=== PATIENT | female | born 1975 | race Caucasian/White ===

== ENCOUNTER 2019-10-21 12:42 | Emergency (ER) | payer BC ==
--- NOTE | 2019-10-21 13:29 | EDM.PDOC ---
ED HPI GENERAL MEDICAL PROBLEM - General Chief Complaint: ENT Problem Stated Complaint: SINUS INFECTION Time Seen by Provider: 10/21/19 13:29 Source of Information: Reports: Patient History Limitations: Reports: No Limitations - History of Present Illness INITIAL COMMENTS - FREE TEXT/NARRATIVE: 44 year old female present to [place] [facility] for 1 month recurrent sinus pressure and pain. Patient getting sinusitis and bronchitis at least once every spring due to seasonal allergies. Patient was treated 1 month ago with Kenalog injection which help her symptoms temporarily. Patient symptoms return abut 5-7 days ago with increased sinus pressure, pain, post nasal drainage, ear pressure and concern regarding recurrent sinus bacterial infection. Patient is using Lydia D for symptoms for the last few day which may symptoms tolerable. Patient has not been good about using allergy medications. Patient has been worked up by ENT, not able tolerated nasal sinus rinses recommended. Patient has not been taking Flonase. Patient has a history of recurrent ear infection with TM reconstruction right TM per history. sinus Pain Score (Numeric/FACES): 3 - Related Data Allergies Allergy/AdvReac Type Severity Reaction Status Date / Time Sulfa (Sulfonamide Allergy Other Verified 10/21/19 13:26 Antibiotics) Home Meds: Home Meds Cefuroxime Axetil [Ceftin] 500 mg PO BID 10 Days #20 tablet 10/21/19 [Rx] predniSONE [Prednisone] 20 mg PO DAILY 5 Days #30 tablet 10/21/19 [Rx] ED ROS ENT - Review of Systems Review Of Systems: Comprehensive ROS is negative, except as noted in HPI. ED EXAM, ENT - Physical Exam Exam: See Below Exam Limited By: No Limitations General Appearance: Alert, WD/WN, Mild Distress (hoarse voice and sinus pressure) Eye Exam: Bilateral Eye: EOMI, Normal Inspection Ears: Normal External Exam, Normal Canal, Hearing Grossly Normal, Cerumen Impaction. No: Normal TMs (scarring noted with air fluid levels, no obviosu signs of purulence but difficutl to assess due to scarring) Nose: Normal Mucousa Mouth/Throat: Normal Inspection, Normal Oropharynx (slight erythema with PND liekly due to cobblestoning), Hoarse Voice Neck: Normal Inspection, Non-Tender, Full Range of Motion Respiratory/Chest: No Respiratory Distress, Lungs Clear, Normal Breath Sounds Cardiovascular: Normal Peripheral Pulses, Regular Rate, Rhythm, No Murmur, Other (elevated blood pressure noted, discussed likely due to decongestant) Neurological: Alert, Oriented, CN II-XII Intact, Normal Cognition, Normal Gait, Normal Reflexes, No Motor/Sensory Deficits Psychiatric: Normal Affect, Normal Mood Course - Vital Signs Last Recorded V/S: Last Vital Signs Temp 36.4 C 10/21/19 13:25 Pulse 83 10/21/19 13:25 Resp 16 10/21/19 13:25 BP 143/83 H 10/21/19 13:25 Pulse Ox 98 10/21/19 13:25 Departure - Departure Time of Disposition: 14:16 Disposition: Home, Self-Care 01 Clinical Impression: Eustachian tube dysfunction, Sinusitis, acute, Elevated blood pressure reading - Discharge Information Prescriptions: Cefuroxime Axetil [Ceftin] 500 mg PO BID 10 Days #20 tablet predniSONE [Prednisone] 20 mg PO DAILY 5 Days #30 tablet Instructions: Eustachian Tube Dysfunction, How to Perform a Sinus Rinse, [id number], Sinusitis, Adult Referrals: PCP,None [Primary Care Provider] - Forms: ED Department Discharge Additional Instructions: 1. WATCHFUL WAITING x 72 hrs before initiating Oral ANTIBIOTIC Ceftin 500mg BID x 10 days. 2. TAKE ANTIBIOTIC WITH FOOD MAY CAUSE UPSET STOMACH AND LOOSE STOOLS. 3. Prednisone 20mg 1-2 times day for sinus pressure and pain max 5 days, with food. 4. SALINE NASAL IRRIGATIONS IF ABLE TO TOLERATE BEFORE NASAL SPRAY. 5. FLONASE NASAL SPRAY 2 SPRAY EACH NOSTRIL 1-2 times daily during allergy season. 6. WARM COMPRESS TO FACIAL AREA FOR PAIN AND PRESSURE 7. IBUPROFEN 800MG EVERY 6-8 HOURS WITH FOOD FOR SINUS PAIN, PRESSURE AND FEVER. 8. TYLENOL 500-1000MG EVERY 6-8 HOURS FOR FEVER AND PAIN. 9. YOUR MAY USE AFRIN NASAL SPRAY but on 3 days in a row, then STOP x 3-4 days, then you may use again for 3 days. 10. SEE PCP IN 7-10 DAYS IF NOT IMPROVING OR SYMPTOMS CONTINUE AFTER ANTIBIOTIC TREATMENT. YOUR BLOOD PRESSURE TODAY WAS ELEVATED WHICH MAY BE DUE TO TAKING DECONGESTANT. PLEASE RECHECK BLOOD PRESSURE 1-2 TIMES DAILY FOR SHREYA NEXT 2 WEEKS AND TAKE READING TO PCP for review. Discharge Instructions Sinus Infection You have acute sinusitis, or an infection of the sinuses. The sinuses are the hollow areas within the facial bones that are connected to the nasal opening. The most common cause of acute sinusitis is a virus infection associated with the common cold. Bacterial sinusitis occurs much less commonly, usually as a complication of viral sinusitis. Experts say that most sinusitis is caused by a virus within the first 7-10 days of illness. Antibiotics do nothing to help with virus infections, so most people do not need antibiotics for acute sinusitis. Generally, every Emergency Department visit should have a follow-up clinic visit with either a primary or a specialty clinic/provider. Please follow-up as instr ucted by your emergency provider today. Return to the Emergency Department if: Your vision changes. You are confused or have difficulty thinking clearly. You have swelling around your eye. You develop a severe headache or neck stiffness. Your symptoms get worse and you are unable to see your primary provider. Treatment: Pain reliefNon-prescription pain medications, such as Tylenol (acetaminophen) or Motrin or Advil (ibuprofen) are recommended for pain. Do not use a medicine that you are allergic to, or if your provider has told you not to use it. Nasal irrigationFlushing the nose and sinuses with a saline solution several times per day can help to decrease pain caused by congestion. Nasal decongestantsNasal decongestant sprays, including Afrin (o xymetazoline) and Sammy-Synephrine (phenylephrine) can be used to temporarily treat congestion. However, these sprays should not be used for more than two to three days due to the risk of rebound congestion (when the nose is congested constantly unless the medication is used repeatedly). Nasal glucocorticoidsThese are prescription steroids delivered by a nasal spray that can help to reduce swelling inside the nose, usually within two to three days. These drugs have few side effects and dramatically relieve symptoms in most people. If you use these in conjunction with Afrin you will need to use at least 15 minutes prior to the nasal decongestant. Antibiotic?Rarely antibiotics are used along with the above treatments. If you were given a prescription for medicine here today, be sure toread all of the information (including the package insert) that comes with your prescription. This will include important information about the medicine, its side effects, and any warnings that you need to know about. The pharmacist who fills the prescription can provide more information and answer questions you may have about the medicine. If you have questions or concerns that the pharmacist cannot address, please call or return to the Emergency Department. Remember that you can always come back to the Emergency Department if you are not able to see your regular provider in the amount of time listed above, if you get any new symptoms, or if there is anything that worries you. Sepsis Event Note (ED) - Evaluation Sepsis Screening Result: No Definite Risk - Focused Exam Vital Signs: Vital Signs Temp Pulse Resp BP Pulse Ox 10/21/19 13:25 36.4 C 83 16 143/83 H 98 10/21/19 13:19 36.4 C 83 16 143/83 H 98
== END 2019-10-21 14:47 | disposition home or self-care (01) ==
LOC: JP.ED 12:42
DX: J01.90 Acute sinusitis, unspecified (principal); H69.91 Unspecified Eustachian tube disorder, right ear; R03.0 Elevated blood-pressure reading, without diagnosis of hypertension; Z88.2 Allergy status to sulfonamides
CPT/HCPCS: 99283